=== PATIENT | female | born 2005 | race Caucasian/White ===

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

== ENCOUNTER 2024-09-10 12:48 | Outpatient (CLI) | payer OTHER, SELFPAY ==
--- NOTE | ~2024-09-10 | US_ITS ---
EXAMINATION TYPE: US breast LT limited COMPARISON: NONE REASON FOR STUDY: lt sub areolar breast mass TECHNIQUE: Targeted sonographic evaluation of the left breast was performed. INTERPRETATION: At the left breast 3:00 position, 3 cm from the nipple, there is a 3.1 x 1.7 x 2.8 cm oval, wider cristóbal n tall, circumscribed hypoechoic solid mass. There is minimal heterogeneity of the mass. There is int ernal vascularity on color flow. IMPRESSION: 3.1 x 1.7 x 2.8 cm mass at the left 3:00 position, as detailed above. Sonographic appearance is most compatible with a benign lesion, such as fibroadenoma. Six-month follow-up ultrasound recommended to reassess. Biopsy could be considered to establish histologic diagnosis, as clinically indicated. BI-RADS CATEGORY: BI-RADS 3: Probably benign Reviewed, dictated and finalized at [facility]. [employer]IST[employer] IMPRESSION: 3.1 x 1.7 x 2.8 cm mass at the left 3:00 position, as detailed above. Sonograph ic appearance is most compatible with a benign lesion, such as fibroadenoma. Si x-month follow-up ultrasound recommended to reassess. Biopsy could be considere d to establish histologic diagnosis, as clinically indicated. BI-RADS CATEGORY: BI-RADS 3: Probably benign
== END 2024-09-10 12:49 | disposition home or self-care (01) ==
PROVIDERS: Visit Provider Obstetrics & Gynecology
DX: N63.25 Unspecified lump in the left breast, overlapping quadrants (principal); N63.20 Unspecified lump in the left breast, unspecified quadrant
CPT/HCPCS: 76642